=== PATIENT | female | born 1965 | race Caucasian/White ===

== ENCOUNTER 2025-06-18 08:46 | Outpatient (AMB) | payer OTHER, SELFPAY ==
--- NOTE | 2025-06-18 08:57 | MHC.PC.OV ---
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 Required: No Allergies Vwcyxxh-YSH-CrE Reductase Inhibitor Allergy (Severe, Verified 06/18/25 08:58) flu like symptoms Medication List - Last Reconciled 06/18/25 by Selene Morales PA-C dulaglutide (Trulicity) mg subcut empagliflozin (Jardiance) 25 mg PO DAILY escitalopram oxalate 5 mg PO DAILY evolocumab (Repatha SureClick) mg subcut Q2W ezetimibe 10 mg PO DAILY lisinopril 5 mg PO DAILY Tobacco use date assessed: 06/18/25 Dental Screening Dental Screen Date: 06/18/25 Did you have a dental visit in the last 12 months?: Yes Did you have a dental problem in the last 6 months where you did not have access to dental care?: No Was dental information given to patient?: Patient has dentist HPI 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 She is transferring her from [facility]. She has a significant past medical history of a goiter, hypertension, hyperlipidemia, type 2 diabetes with unspecified complications, insomnia, gastritis, low back pain, bilateral hip pain, osteoarthritis and recurrent mild depression. Endo: Was diagnosed with diabetes around 2022. A1c is 5.4. She is currently on Jardiance 25 mg daily and Trulicity 4.5 mg weekly. She says that the Trulicity at this high dose makes her feel nauseous. It does appear to control her blood sugars but she has felt that it does not really help with weight loss. -did not tolerate metformin. Does not Monitor blood sugars. Does not have any testing supplies. Denies any recent hyper or hypoglycemic events CV: Blood pressure today in the office is 114/80. She is currently on lisinopril 5 mg. Cholesterol is managed with Repatha and Zetia 10 mg. Does not tolerate statins, has tried all brands. Had flu like sx with that. GI: On omeprazole for GERD. Psych: Stable with Lexapro 5 mg and trazodone p.r.n. Msk: follows with [facility] and pain management in [facility]. Uses a cane and handicap pass. Has a hard time walking long distances due to her hip pain and back pain. Her right hip is worse than the left. She has had injections in the past and wants to go back to pain management for this. Recently has had an exacerbation of her neck pain. OTC analgesics are not helpful. No radiation down the arms. Feels like she has limited range of motion due to pain. Not interested in physical therapy at this point. Mammo: Overdue Pap: S/p hysterectomy Bone density: Never had, s/p hysterectomy 2005 Colonoscopy: Has been 10 years. Has a history of colon polyps. fam hx: Mother had breast cancer at 71. Sister 40 years old heart attack. 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 1. Little interest or pleasure in doing things: several days 2. Feeling down, depressed, or hopeless: several days 3. Trouble falling or staying asleep, or sleeping too much: several days 4. Feeling tired or having little energy: several days 5. Poor appetite or overeating: not at all 6. Feeling bad about yourself - or that you are a failure or have let yourself or your family down: not at all 7. Trouble concentrating on things, such as reading the newspaper or watching television: not at all 8. Moving or speaking so slowly that other people could have noticed. Or the opposite - being so fidgety or restless that you have been moving around a lot more than usual: not at all 9. Thoughts that you would be better off or of hurting yourself in some way: not at all Total score: 4 Depression Screening Interpretation: Positive Depression Screening Follow-up: Existing condition and Follow-up Visit Requested Depression Screening Done: Yes 93327 - PHQ-9 Billing: Yes Source: Developed by Drs. Lc Hand, Palak Rashid, Reno Oates and colleagues, with an educational jose alfredo from [employer] (Inspect Manager). Thrive Questionnaire Date Thrive assessed: 06/17/25 I am a: Patient What is your living situation today?: I have a steady place to live Within the past 12 months, did the food you bought not last and you didn't have the money to get more?: Never true Within the past 12 months, did you worry whether your food would run out before you got money to buy more?: Never true Do you have trouble paying for medicines?: No Do you have trouble getting transportation to medical appointments?: No Do you have trouble paying your heating and electricity bill?: No Do you have trouble taking care of your child, family member or friend?: No Do you have trouble with day-to-day activities such as bathing, preparing meals, shopping, managing finances, etc.?: No Are you currently unemployed and looking for a job?: No Are you interested in more education?: No Please select the resources that you would like help with: None Currently or been in a relationship where the following occur: No concerns reported THRIVE Score: 0 AUDIT C Alcohol Use Questionnaire (AUDIT-C) 1. How often do you have a drink containing alcohol?: Never 2. How many drinks containing alcohol do you have on a typical day when you are drinking?: 1 or 2 3. How often do you have six or more drinks on one occasion?: Never Total Score: 0 NICOLLE-7 AMB Questionnaire NICOLLE-7 Feeling nervous, anxious, or on edge: 1 = Several days Not being able to stop or control worryin = Several days Worrying too much about different things: 1 = Several days Trouble relaxin = Several days Being so restless that it is hard to sit still: 0 = Not at all Becoming easily annoyed or irritable: 1 = Several days Feeling afraid as if something awful might happen: 0 = Not at all Total NICOLLE-7 score (0-4 normal; 5-9 mild; 10-14 moderate; 15-21 severe): 5 Source: Developed by Drs. Lc Hand, Palak Rashid, Reno Oates and colleagues, with an educational jose alfredo from [employer] (Inspect Manager). NICOLLE-7 Assessment Billing NICOLLE-7 Assessment Tool: NICOLLE-7 Assessment 43763 Physical exam (Primary Care) Depression Screening Interpretation: Positive Depression Screening Follow-up: Existing condition and Follow-up Visit Requested Thrive Assessment: Date of Thrive Assessment Date Thrive assessed 06/17/25 06/17/25 15:22 Currently or been in a relationship where the following occur: No concerns reported Const Orientation/consciousness: patient oriented x3 HENMT Ears: hearing grossly normal bilaterally Neck Thyroid: Thyroid normal Lymphatic: no lymphadenopathy noted Resp Auscultation: clear to auscultation bilaterally Cardio Rate: regular rate Rhythm: regular rhythm Heart sounds: S1 normal heart sound present and S2 normal heart sound present GI Inspection: Yes normal to inspection Palpation (GI): Soft to palpation and Other GI palpation findings present (nontender, no cva tenderness) Auscultation: normoactive bowel sounds Rectal Exam - Female: deferred Skin General skin exam: no rashes or lesions noted Neuro General: patient oriented x3, gait normal and no focal motor deficits Results AMB Hemoglobin A1c AMB Hemoglobin A1c 5.4 % Last Edit by Rehana Alas CMA on 06/18/25 09:24 Coding Level of Care Code New Pt Level 4 (98910) Complex EM visit Add On G2211 Diagnoses Type 2 diabetes mellitus E11.9 Hypertension I10 HLD (hyperlipidemia) E78.5 GERD (gastroesophageal reflux disease) K21.9 Anxiety and depression F41.9; F32.A Colon polyps K63.5 Insomnia G47.00 Bilateral hip pain M25.551; M25.552 Neck pain M54.2 Additional Codes NICOLLE-7 Assessment Billing - NICOLLE-7 Assessment Tool: NICOLLE-7 Assessment 47382 ([id number]) PHQ-9 - 87354 - PHQ-9 Billing: Yes ([id number]) Assessment & Plan Assessment & Plan (1) Type 2 diabetes mellitus: Code(s): E11.9 - Type 2 diabetes mellitus without complications Category: Medical Plan: Jardiance 10 mg ordered We will discontinue the Trulicity and try Mounjaro. Discussed risks and benefits and adverse effects of this medication. She will let me know if she is unable to tolerate this. Testing supplies ordered Reviewed signs and symptoms of hyper and hypoglycemia that would require emergent medical treatment. Labs ordered today Three-month follow up. Sooner if needed (2) Hypertension: Code(s): I10 - Essential (primary) hypertension Category: Medical Plan: WNL. Continue current regimen (3) HLD (hyperlipidemia): Code(s): E78.5 - Hyperlipidemia, unspecified Category: Medical Plan: Has been off of the Repatha for the last month or so. I have reordered this along with refilling the Zetia which she has been compliant with. (4) GERD (gastroesophageal reflux disease): Code(s): K21.9 - Gastro-esophageal reflux disease without esophagitis Category: Medical Plan: Currently well-controlled with omeprazole. Continue current regimen (5) Anxiety and depression: Code(s): F41.9 - Anxiety disorder, unspecified; F32.A - Depression, unspecified Category: Medical Plan: Well-controlled with Lexapro 5 mg. Rarely uses trazodone. (6) Colon polyps: Code(s): K63.5 - Polyp of colon Category: Medical Plan: Referral to GI (7) Insomnia: Code(s): G47.00 - Insomnia, unspecified Category: Medical Plan: As listed above (8) Bilateral hip pain: Code(s): M25.551 - Pain in right hip; M25.552 - Pain in left hip Category: Medical Plan: X-rays ordered Referral back to pain management (9) Neck pain: Code(s): M54.2 - Cervicalgia Category: Medical Plan: X-rays ordered. Referral back to pain management Plan Mammogram and bone density ordered Orders: Orders XR cervical spine 3V Today M54.2 - Cervicalgia MM screening mammo BI Today Z12.31 - Encounter for screening mammogram for malignant neoplasm of breast Complete Blood Count Auto Diff Today E11.9 - Type 2 diabetes mellitus without complications, E78.5 - Hyperlipidemia, unspecified, F32.A - Depression, unspecified, F41.9 - Anxiety disorder, unspecified, I10 - Essential (primary) hypertension, K21.9 - Gastro-esophageal reflux disease without esophagitis TSH reflex Free T4 Today E11.9 - Type 2 diabetes mellitus without complications, E78.5 - Hyperlipidemia, unspecified, F32.A - Depression, unspecified, F41.9 - Anxiety disorder, unspecified, I10 - Essential (primary) hypertension, K21.9 - Gastro-esophageal reflux disease without esophagitis Microalbumin, Random (w Creat) Today E11.9 - Type 2 diabetes mellitus without complications, E78.5 - Hyperlipidemia, unspecified, F32.A - Depression, unspecified, F41.9 - Anxiety disorder, unspecified, I10 - Essential (primary) hypertension, K21.9 - Gastro-esophageal reflux disease without esophagitis XR hips CLIFF min 3V Today M25.551 - Pain in right hip, M25.552 - Pain in left hip AMB Hemoglobin A1c Today E11.9 - Type 2 diabetes mellitus without complications XR DEXA axial skeleton Today N95.1 - Menopausal and female climacteric states Comprehensive [place]. Panel Fast Today E11.9 - Type 2 diabetes mellitus without complications, E78.5 - Hyperlipidemia, unspecified, F32.A - Depression, unspecified, F41.9 - Anxiety disorder, unspecified, I10 - Essential (primary) hypertension, K21.9 - Gastro-esophageal reflux disease without esophagitis Lipid Panel Today E11.9 - Type 2 diabetes mellitus without complications, E78.5 - Hyperlipidemia, unspecified, F32.A - Depression, unspecified, F41.9 - Anxiety disorder, unspecified, I10 - Essential (primary) hypertension, K21.9 - Gastro-esophageal reflux disease without esophagitis UA CC w/rflx Micro + Cult Today E11.9 - Type 2 diabetes mellitus without complications, E78.5 - Hyperlipidemia, unspecified, F32.A - Depression, unspecified, F41.9 - Anxiety disorder, unspecified, I10 - Essential (primary) hypertension, K21.9 - Gastro-esophageal reflux disease without esophagitis, R30.0 - Dysuria Referrals Pain Management Referral G89.29 - Other chronic pain, M25.551 - Pain in right hip, M25.552 - Pain in left hip, M54.2 - Cervicalgia, M54.42 - Lumbago with sciatica, left side Gastroenterology Referral Z12.11 - Encounter for screening for malignant neoplasm of colon Medications: New lancets (FreeStyle Lancets) use daily as directed to check blood glucose 100 ea 3RF E11.65 - Type 2 diabetes mellitus with hyperglycemia blood sugar diagnostic (FreeStyle Lite Strips) Use daily As directed to check blood glucose 100 ea 3RF E11.9 - Type 2 diabetes mellitus without complications empagliflozin (Jardiance) 10 mg PO QAM 90 tabs 2RF tirzepatide (Mounjaro) for 4 weeks 2.5 mg (0.5 mL) subcut QWEEK 2 mL 3RF blood-glucose meter (FreeStyle Lite Meter kit) Use daily As directed to check blood sugars 1 ea 0RF E11.65 - Type 2 diabetes mellitus with hyperglycemia escitalopram oxalate 5 mg PO DAILY 90 tabs 3RF evolocumab (Repatha SureClick) 140 mg subcut Q2W 2 mL 5RF ezetimibe 10 mg PO DAILY 90 tabs 3RF lisinopril 5 mg PO DAILY 90 tabs 3RF Discontinued dulaglutide (Trulicity) Discontinued Reason: Change Referral Type subcut
[2025-06-18 09:06] VITALS: BP 114/80; PULSE 80; RESP 14; TEMP 36.6; O2SAT 97; BMI 44.1
--- OUTSIDE RECORDS SUMMARY | 2025-06-18 09:22 | XMS_ITS | Clinical Summary ---
Author Organization [facility] Address [address] [place] [address] Care Team Providers Care Painting Worker Name Role Phone Doris Lal NP Primary Care Provider [phone] Allergies Active Allergy Reactions Criticality Noted Date Comments Pravastatin 07/04/2013 Other reaction(s): Myalgia and Joint Pain Rosuvastatin High 05/30/2013 Other reaction(s): Myalgia and Joint Pain Multiple trials. Medications Medication Sig Dispensed Refills Start Date End Date Status albuterol 108 (90 Base) MCG/ACT inhaler INHALE 1 PUFF BY MOUTH EVERY 6 HOURS NEEDED FOR 30 DAYS 0 Active cyclobenzaprine (FLEXERIL) 10 MG tablet TAKE 1 TAB ORALLY ONCE AT BEDTIME NEEDED 0 Active Trulicity 3 MG/0.5ML subcutaneous pen-injector every 7 days. 0 05/08/2023 Active Jardiance 10 MG tablet Take 1 tablet (10 mg total) by mouth daily. 0 04/19/2023 Active escitalopram (LEXAPRO) 5 MG tablet Take 1 tablet (5 mg total) by mouth daily. 0 Active ezetimibe (ZETIA) tablet 10 mg Take 1 tablet (10 mg total) by mouth daily. 0 Active lisinopril (PRINIVIL,ZESTRIL) tablet 5 mg Take 1 tablet (5 mg total) by mouth daily. 0 05/16/2023 Active Naproxen Sodium (Aleve) 220 MG CAPS Take by mouth 2 (two) times a day as needed. 0 Active Active Problems Problem Noted Date Diagnosed Date Lumbar spondylosis 02/09/2023 Cervical spondylosis 02/09/2023 Social History Tobacco Use Types Packs/Day Years Used Date Smoking Tobacco: Former Cigarettes 1 20 Q uit: 2006 Smokeless Tobacco: Never Tobacco Cessation:Counseling Given: Not Answered Alcohol Use Standard Drinks/Week Comments Yes 0 (1 standard drink = 0.6 oz pur e alcohol) rare Sex and Gender Information Value Date Recorded Sex Assigned at Female 01/31/2023 8:00 AM EDT Gender Identity Not on file Sexual Orientation Not on file Job Start Date Occupation Industry Not on file Not on file Not on file Last Filed Vital Signs Vital Sign Reading Time Taken Comments Blood Pressure 130/62 08/03/2023 1:18 PM EST Pulse 90 08/03/2023 1:18 PM EST Temperature 36.7 C (98 F) 08/03/2023 1:18 PM EST Respiratory Rate 18 08/03/2023 1:18 PM EST Oxygen Saturation 97% 08/03/2023 1:18 PM EST Inhaled Oxygen Concentration - - Weight 117.9 kg (260 lb) 07/26/2023 1:16 PM EST Height 160 cm (5' 3 ) 07/26/2023 1:16 PM EST Body Mass Index 46.06 07/26/2023 1:16 PM EST Plan of Treatment Health Maintenance Due Date Last Done Comments Hepatitis B Vaccines (1 of 3 - 3-dose series) 1967 Hepatitis C Screening 1967 COVID-19 Vaccine (#1) 1967 Depression Screening 1979 BMI Counseling 1985 Preventative Health Evaluation 1985 Cervical Cancer Screening (P ap Smear) 1988 Colon Cancer Screening (Colonoscopy) 2012 Breast Cancer Screening (Mammogram) 2017 Shingrix-Zoster Vaccine (1 of 2) 2017 DTap / Tdap / Td (2 - Td or Tdap) 03/25/2023 013 Influenza Vaccine (#1) 2025 06/22/2009 Pneumococcal Vaccine Aged Out No long er eligible based on patient's age to complete this topic RSV Ped < 20 months Aged Out No longe r eligible based on patient's age to complete this topic Care Teams Painting Worker Relationship Specialty Start Date End Date Doris Lal NP [address] [address] PCP - General Oncology 07/28/23
--- OUTSIDE RECORDS SUMMARY | 2025-06-18 09:22 | XMS_ITS | Data Portability ---
Author Organization [place] [facility] [place] Address [address] [place] [address] Care Team Providers Care Restaurant Attendant Name Role Phone DORIS BARRETT Primary Care Provider DORIS BARRETT Referring Provider Assessment Encounter Date Assessment Date Assessment LastModified by Organization Details LastModified Time 01/16/2023 01/16/2023 57-year-old female with multiple orthopedic concerns. 1. Her cervical spine. 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 We discussed this diagnosis. She is not a surgical candidate. 2. Chronic low back discomfort with intermittent right anterior groin pain. Approximately 3 weeks of right lateral thigh pain. At this time her low back and right leg/groin symptoms appear multifactorial. She has lumbar spondylosis, she may have an active lumbar radiculopathy, however she also has degenerative changes of her right hip. Regards to her lumbar spine. She has full strength on exam and no red flags. She is not a surgical candidate. We will refer her to the comprehensive spine to do for nonoperative care of her cervical and lumbar spine. We discussed her right hip. We recommended trying to ambulate with a cane on the left to offload the pressure of her right hip. This was demonstrated for her. We will have her follow-up with our hip specialist colleagues for further evaluation and treatment of her right hip. She will follow-up with us on an as-needed basis [email or web address] Not available 01/16/2023 12:27:53 05/16/2023 05/16/2023 58-year-old female with osteoarthritis of the right hip is shown a positive response to intra-articular injection of cortisone. She still has persistent and severe pain at the right low back with radiation into right lower extremity. During today's office encounter I filled out paperwork for handicap parking. I am recommending follow-up with a member of our spine team for further evaluation and assessment of her lumbar spine. [email or web address] Not available 05/16/2023 11:31:04 06/19/2023 06/19/2023 HPI: Fifi is a 57-year-old female with asthma and prediabetes. She has a history of a DVT after a foot surgery. She is not on anticoagulation. She returns today for continued management of her lumbar spine. She was evaluated at our office in January 2022 for her cervical and lumbar spine. 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 She had multilevel lumbar spondylosis. She was referred to the [facility] spine to do for nonoperative care of her spinal symptoms. And referred to Dr. Hess for evaluation of her hip. Since her last visit she had a hip injection with Dr. Hess the offered her temporary relief. She was evaluated at the [facility] spine stool participated in physical therapy. She completed the physical therapy without relief, in fact her lumbar symptoms have worsened. She describes worsening low back pain with bilateral anterior thigh pain that the she describes as hard and painful . She notes variable right lower extremity paresthesias. She Limited with her walking and standing. She is requesting an MRI for further evaluation. Treatments to date include dry needling, massage, family day care worker, 2 cortisone injections by her PCP, which offered her temporary relief, physical therapy at the [facility] [place], a hip injection Plan: We are focusing on her lumbar spine. She has multi level lumbar spondylosis. She has chronic progressive low back pain and bilateral anterior thigh pain and right leg paresthesias. She was treated at the [facility] [place], she completed physical therapy, her back and leg pain are worse. She is requesting an MRI of her lumbar spine for further evaluation. We will place this order for her. She will return after the MRI. Not available 06/19/2023 09:19:40 07/10/2023 07/10/2023 Diabetic with asthma status post DVT after foot surgery was last seen on June 19, 2023. She had progressive back pain and bilateral anterior thigh pain. She completed physical therapy at the [facility] [place]. Her pain is worse. She requested an MRI and returns today to review it. She continues to have meaningful back pain and to much lesser degree leg pain. He is interfering with the quality of her life. She was seen at the [facility] [place] and was disappointed. Physical examination is unremarkable. She has an elevated BMI but no gross neurologic deficit. We discussed options. He is not a surgical candidate. She has a potential benefit from radiofrequency ablation if her medial branch/facet joint blocks give her at least temporary relief. She is interested in pursuing this. We refer her to Dr. Pagan for assessment and possible RFA. She follow-up with us on an as-needed basis. [email or web address] Not available 07/10/2023 16:33:47 Plan of Treatment Reminders Order Date Submit Date Provider Last Modified By Organization Details Last Modified Time Details Appointments None recorded. Lab None recorded. Referral interventi onal pain medicine specialist referral - Please contact patient to schedule appointmen t. Please assess with facet/medi al branch blocks for possible RFA 2022 023 [email or web address] Venus Pagan MD, [address] [place] [address], [facility], [place], [address], 3 07:58:10 spine center referral - Attn: Soraya Dailey - Reason for Referral: Nonoperati ve care of cervical and lumbar spine. 2022 023 [email or web address] [facility] [place], [address], [place], [address], 3 08:12:50 Procedures injection, hip, fluoro guidance (PROC) - right hip OA, corticoste roid inj 2022 023 [email or web address] [facility], [address] [facility], [place], [address], 3 14:14:03 Surgeries None recorded. Imaging MRI, lumbar spine, w/o contrast - progressiv e low back with b/l Leg pain and b/l le numbness 2022 023 CHANDA Not available 3 10:37:02 XR, lumbosacra l spine, 2 or 3 view 2022 023 [email or web address] [facility], [address], [place], [address], 3 12:47:27 XR, cervical spine, 2 or 3 view 2022 023 [email or web address] [facility], [address], [address], [place], [address], 3 12:47:27 XR, hip, unilateral , 2 or 3 view 2022 023 [email or web address] [facility], [address], [address], [place], [address], 3 12:47:27 Medication Orders None recorded. Patient TargetsNo targets recorded. Patient Instructions Encounter Date Encounter Id Patient Instructions Last Modified By Organization Details Last Modified Time 01/16/2023 [id number] Imaging: AP and lateral radiographs of the cervical spine were obtained in the [place] office today. These revealed straightening of cervical lordosis with large flowing anterior osteophytes throughout her entire cervical spine. She appears to be autofused from C2-C6. AP and lateral radiographs lumbar spine were obtained in the [place] office today. These reveal changes with narrowing and osteophyte formation. Facet arthropathy. No evidence of fracture or spondylolisthesis. X-rays of the right hip were obtained in the office today for further evaluation of right groin and lateral thigh pain. This revealed degenerative changes of the right hip without fracture or acute abnormality. [email or web address] Not available 01/16/2023 12:12:03 Reason for Referral Spine Center Referral for Brea mbar spondylosis Attn: Soraya Dailey - Reason for Referral: Nonoperative care of cervical and lumbar spine. Referring Physician: Ashley Reece, Orthopedic Surgery, Encounter Date: 01/16/2023 Interventional Pain Medicine Specialist Referral for Arthritis of facet joint of lumbar spine Please contact patient to schedule appointment. Please assess with facet/medial branch blocks for possible RFA Referring Physician: Karri England, Orthopedic Surgery, Encounter Date: 07/10/2023 Results Created Date Observation Date Name Description Value Unit Range Abnormal Flag Note LastModifiedBy Organization Detail LastModifiedTime 03/09/2003/09/2023 injec tion, hip, fluor o michelle nce (PROC ) No observ ation record ed. [email or web address] [facility] [address] [facility] [address], [place], [address], 03/10/2023 04:40:44 03/09/20 23 03/09/2023 injec tion, hip, fluor o michelle nce (PROC ) No observ ation record ed. [email or web address] [facility] [address] [facility] [address], [place], [address], 03/10/2023 04:40:44 07/05/2006/27/2023 MRI, lumba r spine , w/o contr ast No observ ation record ed. [email or web address] [facility] [address] [place] [address], [address], 07/05/2023 10:55:56 Result Notes None recorded. 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 44102310829 9107 Active 2022 ASHLEY REECE PA-C [address], [place], [address] , [place] [facility] 3 12:27:57 Lumbar spondylos is 010306369 Active 2022 ASHLEY REECE PA-C [address], [place], [address] , [place] [facility] 3 12:27:58 Cervical spondylos is 619460279 Active 2022 Cervical spondylos is Not Available [facility] 5 23:06:58 Osteoarth ritis of right hip joint 12784267521 9107 Active 2022 Carter Hess MD [address], [place], [address] , [place] [facility] 3 14:21:14 Arthritis of facet joint of lumbar spine 62843706219 156148 Active 2022 Karri England MD [address], [place], [address] , [place] [facility] 3 16:32:14 Problem Notes None recorded. Procedures Surgical History Date Name Laterality Status Provider Name and Address Organization Details Recorded Time procedure on foot completed Trena Rachid [place] [facility] 06/19/2023 08:57:47 Gallbladder Surgery completed Trena Rachid [place] [facility] 06/19/2023 08:57:57 [facility] 06/19/2023 08:58:05 Imaging Results None recorded. Procedure Notes None recorded. Medical Equipment None Reported. Allergies Allergen ID Allergen Name Allergen Category Reaction Reaction Severity Criticality Documentation Date Start Date Code Code System Note Provider Name and Address Organization Details Recorded Time 19576 pravastat in medicatio n Not available Not available Not available 06/10/20252012 07326 RxNorm Other react ion(s ): Myalg ia and Joint Pain Not Available [facility] 5 01:21:09 66812 rosuvasta tin medicatio n Not available Not available Not available 06/10/20252012 54563 2 RxNorm Other react ion(s ): Myalg ia and Joint PainM ultip le trial s. Not Available [facility] 5 01:21:09 Medications Name Sig Start Date Stop Date Status Note LastModified by Organization Details LastModified Time cyclobenzapr ine 10 mg tablet TAKE 1 TAB ORALLY ONCE AT BEDTIME NEEDED active Not Available Not Available No t Available prednisone 10 mg tablet PLEASE SEE ATTACHED FOR DETAILED DIRECTIONS active Not Available Not Available N ot Available benzonatate 200 mg capsule TAKE 1 CAPSULE BY MOUTH THREE TIMES A DAY FOR 7 DAYS active Not Available Not Available N ot Available amoxicillin 875 mg tablet TAKE 1 TABLET BY MOUTH EVERY 12 HOURS FOR 10 DAYS active Not Available Not Available Not Available doxycycline monohydrate 100 mg capsule TAKE 1 CAPSULE BY MOUTH EVERY 12 HOURS FOR 10 DAYS active Not Available Not Available Not Available prednisone 50 mg tablet TAKE 1 TAB ORALLY ONCE DAILY FOR 7 DAYS active Not Available Not Available No t Available lisinopril 5 mg tablet Take 1 tablet (5 mg total) by mouth daily. 2022 active Not Available Not Available Not Avai lable albuterol sulfate HFA 90 mcg/actuatio n aerosol inhaler INHALE 1 PUFF BY MOUTH EVERY 6 HOURS NEEDED FOR 30 DAYS active Not Available Not Available No t Available ezetimibe 10 mg tablet Take 1 tablet (10 mg total) by mouth daily. active Not Available Not Available No t Available escitalopram 5 mg tablet Take 1 tablet (5 mg total) by mouth daily. active Not Available Not Available No t Available naproxen sodium 220 mg capsule Take by mouth 2 (two) times a day as needed. active Not Available Not Available No t Available Jardiance 10 mg tablet Take 1 tablet (10 mg total) by mouth daily. 2022 active Not Available Not Available Not Avai lable Trulicity every 7 days. 2022 active Not Available Not Available Not Avai lable Trulicity 3 mg/0.5 mL subcutaneous pen injector active Not Available Not Available Not Available Flowflex COVID-19 Antigen Home Test kit active Not Available Not Available Not Available Vitals Date Recorded Body height Body mass index (BMI) Body weight Provider Name and Address Organization Details Last Updated DateTime 01/16/2023 160.02 cm 46.1 kg/m2 506170.02 norman Doris [facility] 01/16/2023 11:21:52 Date Recorded Body height Provider Name an d Address Organization Details Last Updated DateTime 02/14/2023 160.02 cm Janett Woodard [facility] 02/14/2023 14:07:11 Date Recorded Body height Body mass index (BMI) Body weight Provider Name and Address Organization Details Last Updated DateTime 05/16/2023 160.02 cm 46.1 kg/m2 309913.02 norman Sophie Peña [facility] 05/16/2023 10:58:36 Date Recorded Body height Body mass index (BMI) Body weight Provider Name and Address Organization Details Last Updated DateTime 06/19/2023 160.02 cm 46.1 kg/m2 691210.02 norman Rashid [facility] 06/19/2023 09:06:57 Date Recorded Body height Body mass index (BMI) Body weight Provider Name and Address Organization Details Last Updated DateTime 07/10/2023 160.02 cm 46.1 kg/m2 853110.02 norman Doris [facility] 07/10/2023 16:17:34 Date Recorded Body mass index (BMI) Body weight Body height Provider Name and Address Organization Details Last Updated DateTime 07/26/2023 46.06 kg/m2 328099 g 160 cm Not Available [facility] 06/10/2025 00:53:27 Date Recorded Respiratory rate Heart rate Body temperature Oxygen saturation Oxygen saturation in Arterial blood by Pulse oximetry Systolic And Diastolic Provider Name and Address Organization Details Last Updated DateTime 18 /min 90 /min 98.006 [degF] 97 % 97 % 130/62 mm[Hg] Not Available [facility] 00:53:28 Social History Question Answer Notes LastModified by Organizat ion Details LastModified Time Tobacco Smoking Status Former Smoker Trena baldwin, [facility] 06/19/2023 08:56:32 When Did You Quit Smoking? 16+yearssinc elastcigaret te [email or web address] Information not available 06/19/2023 Sex: Unknown Functional Status Question Answer Note LastModified by Organizat ion Details LastModified Time Do you use any illicit or recreational drugs? No [email or web address] Information not available 06/19/2023 Do you or have you ever used any other forms of tobacco or nicotine? No [email or web address] Information not available 06/19/2023 What is your level of alcohol consumption? None [email or web address] Information not available 06/19/2023 Mental Status None recorded. Family History Relationship Description Onset Age of this Age Resolved Age Notes LastModified by Organization Details LastModified Time Mother Arthritis [id number] Not theron ilable 06/19/2023 08:56:57 Mother Family history of malignant neoplasm [email or web address] Not available 08:57:04 Mother Hyperlipidem ia [email or web address] Not available 08:57:34 Sister Arthritis [id number] Not theron ilable 06/19/2023 08:56:57 Sister Heart disease [email or web address] Not available 08:57:22 Medical History Condition Response Coronary Artery Disease N Gout N Hyperthyroidism N MRSA N Blood Transfusion N Emphysema N Depression N COPD N Hypothyroidism N Pacemaker N Vascular Disease N Gastrointestinal Disease N Anxiety Disorder N Autoimmune disease N Arthritis N Cancer N Stroke N High Cholesterol N Neurologic Disorder N Liver Disease N Organ Transplant N Rheumatoid Arthritis N Arrhythmia N Fibromyalgia N Kidney Disease N Allergies/Hayfever N Adverse Reaction to Anesthesia N Thyroid Problems N Anemia N Brain Injury N Heart Attack (ID) N Osteopenia N Diabetes N Bleeding Disorder Y Seizures/Epilepsy N AIDS/HIV N Congestive Heart Failure (CHF) N Asthma Y Amputation N Reflux/GERD N Sleep Apnea N Hepatitis N Aneurysm N Heart Disease N Pulmonary Embolism N Hypertension N Osteoporosis N Gynecological HistoryNo gynecological history recorded. Obstetrics History GPAL:G 0 P 0 0 0 0 Past Encounters Encounter ID Performer Location Encounter Start Date Encounter Closed Date Diagnosis/Indication Diagnosis SNOMED-CT Code Diagnosis ICD10 Code Diagnosis IMO Codes Diagnosis Note [id number] ASHLEY REECE PA-C [address] [address] 01/16/2023 10:55:10 01/16/2023 12:44:02 Pain in cervical spine 042991568 M54.2 Low back pain 366476200 M54.50 Pain of ri ght hip joint 3187148975 88809 M25.551 Diffuse id iopathic skeletal hyperostosis of cervical spine 8276887319 22641 M48.12 Lumbar spondylosis 39198 0009 M47.896 [id number] MD SHARON Gleason [address] [address] 02/14/2023 14:04:03 02/14/2023 14:20:48 Osteoarthritis of right hip joint 7135428193 43556 M16.11 [id number] [address] 05/16/2023 10:55:30 05/16/2023 11:38:24 Pain of right hip joint 8577518402 50577 M25.551 [id number] [address] 06/19/2023 08:52:37 06/19/2023 09:16:54 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 9845371732 83398 M48.12 Pain in ce rvical spine 955266966 M54.2 Low back pain 123170056 M54.50 Lumbar spondylosis 44724 0009 M47.896 M79.669 Pain of ri ght hip joint 5297346685 87431 M25.551 [id number] Karri England MD JOHAN [address] [address] 07/10/2023 15:53:13 07/10/2023 16:37:13 Low back pain 621099819 M54.50 Arthritis of facet joint of lumbar spine 2329316544 1464131 M46.96 Body mass index 40+ - severely obese 552505131 Z68.42 Health Concerns Section Related Observation LastModified by Organization Detai ls LastModified Time None Recorded Concern Status LastModified by Organization Details LastModified Time None Recorded Advance Directives Directive None Recorded Payers Insurance Date Sequence Insurance Name Policy Number Policy Fowler Covered Member ID Fowler Member ID Guarantor Name 07/09/2023 [id number] Fifi Noriega [id number] Fifi Noriega Notes Date Note Type Note Provider Name and Address Organization Details Recorded Time 01/16/2023 text/html Fifi is a 57-year-old female with asthma and prediabetes. She has a history of a DVT after a foot surgery. She is not on anticoagulation. She presents today with her daughter just for evaluation of her cervical and lumbar spine. She is here to discuss 2 separate concerns. One concern is her cervical spine. She describes chronic neck stiffness and decreased range of motion. 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 She does not have radiculopathy myelopathy or weakness. She is unaware of alleviating or aggravating factors. Her second concern is her lumbar spine. Describes chronic low back discomfort since 2019. More recently she has developed right anterior groin pain, discomfort down her right lateral thigh to her knee and hamstring cramping. Her radiating leg pain has been there approximately 3 weeks without any injury. She denies paresthesias or weakness. Her pain is worse with walking, standing and weightbearing. She feels better avoiding pressure. Pain disturbs sleep. No saddle anesthesia. No bowel or bladder incontinence. No fevers, chills, or unexplained weight loss. Treatments today include dry needling, massage, family day care worker, 2 cortisone injections by her PCP, which offered her temporary relief. ASHLEY REECE PA-C [address], [place], [address], [place] [facility] 01/16/2023 12:29:11 02/14/2023 text/html HPI:Thank you for the pleasure of requesting a consultation on this patient. Patient comes in complaining of right hip pain. This patient is experiencing right hip pain, which is moderate in intensity, and has recently worsened. The pain limits some activities of daily living. Pain and restriction of function are moderate at this time. She has tried dry needling, massage therapy, family day care worker. Spine issues. She was seen by Dr. Bosch's team, and was referred to comprehensive spine [place].Review of systems is negative for other rapidly progressive neurological disorder, chest pain, shortness of breath, fevers, chills, or any signs of active or persistent local or systemic infection. Physical Exam: Patient is well nourished, well-developed, in no acute distress, with appropriate mood and affect. The patient is oriented to time, place, and person. Respirations are even and unlabored. There is no inguinal adenopathy. Examination of the contralateral hip shows normal range of motion, strength, no tenderness, and intact skin. The affected limb is well-perfused, shows a grossly normal motor and sensory examination. Examination of the right hip shows no skin lesions. Hip motion is reduced. FADIR is positive and ABRAHAN is positive. Stinchfield test is mildly positive. Leg lengths are approximately equal . Both hips are stable and muscle strength is normal. Pedal pulses are palpable. Radiographs of the right hip from January 16, 2023 demonstrate degenerative joint disease with joint space narrowing and subchondral sclerosis. Assessment/Plan: The patient has right hip arthritis. An extensive discussion was conducted on the natural history of the disease and the variety of surgical and non-surgical options available to the patient including non-steroidal anti-inflammatory medications, physical therapy, maintenance of ideal body weight, and reduction of activity. I think a right hip injection would be helpful both for diagnostic and therapeutic purposes. I am referring her for IR guided right corticosteroid injection. She will follow-up in 4 months with reevaluation at that time. Carter Hess MD [address], [place], [address], [place] [facility] 02/14/2023 14:22:25 05/16/2023 text/html 58-year-old female presents for recheck of right hip pain. She reports that she underwent a cortisone injection to the right hip. She states that it helped to alleviate the pain that she was experiencing in the groin. She still has persistent pain at the right low back with radiation in the buttock and down the leg. She engages me in conversation about the role for injection to the back and potential need for an MRI of her lumbar spine. Notably there is no report of any new incontinence of bladder or bowel nor any saddle paresthesia. GAURAV OLIVIER PA-C [address], [place], [address], [place] [facility] 05/16/2023 11:31:23 06/19/2023 text/html Prior Visit 01/16/23 Fifi is a 57-year-old female with asthma and prediabetes. She has a history of a DVT after a foot surgery. She is not on anticoagulation. She presents today with her daughter just for evaluation of her cervical and lumbar spine. She is here to discuss 2 separate concerns. One concern is her cervical spine. She describes chronic neck stiffness and decreased range of motion. 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 She does not have radiculopathy myelopathy or weakness. She is unaware of alleviating or aggravating factors. Her second concern is her lumbar spine. Describes chronic low back discomfort since 2019. More recently she has developed right anterior groin pain, discomfort down her right lateral thigh to her knee and hamstring cramping. Her radiating leg pain has been there approximately 3 weeks without any injury. She denies paresthesias or weakness. Her pain is worse with walking, standing and weightbearing. She feels better avoiding pressure. Pain disturbs sleep. No saddle anesthesia. No bowel or bladder incontinence. No fevers, chills, or unexplained weight loss. Treatments today include dry needling, massage, family day care worker, 2 cortisone injections by her PCP, which offered her temporary relief. Plan 57-year-old female with multiple orthopedic concerns. 1. Her cervical spine. 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 We discussed this diagnosis. She is not a surgical candidate. 2. Chronic low back discomfort with intermittent right anterior groin pain. Approximately 3 weeks of right lateral thigh pain. At this time her low back and right leg/groin symptoms appear multifactorial. She has lumbar spondylosis, she may have an active lumbar radiculopathy, however she also has degenerative changes of her right hip. Regards to her lumbar spine. She has full strength on exam and no red flags. She is not a surgical candidate. We will refer her to the comprehensive spine to do for nonoperative care of her cervical and lumbar spine. We discussed her right hip. We recommended trying to ambulate with a cane on the left to offload the pressure of her right hip. This was demonstrated for her. We will have her follow-up with our hip specialist colleagues for further evaluation and treatment of her right hip. She will follow-up with us on an as-needed basis ASHLEY REECE PA-C [address], [place], [address], [place] [facility], P 06/19/2023 09:20:46 OBGyn Episode No OBEpisode recorded.
--- OUTSIDE RECORDS SUMMARY | 2025-06-18 09:22 | XMS_ITS | Clinical Summary ---
Author Organization [facility] it Address [address] [place] [address] Care Team Providers Care Sand Conditioner Name Role Phone Doris Lal BELKIS Primary Care Provider [phone] Surgical History Surgery Date Site/Laterality Comments CHOLECYSTECTOMY PROCEDURE:CHOLECYSTECTOMY HYSTERECTOMY PROCEDURE:HYSTERECTOMY FOOT SURGERY PROCEDURE:FOOT SURGERY COLONOSCOPY PROCEDURE:COLONOSCOPY LUMBAR EPIDURAL INJECTION 08/03/2023 Bilateral PROCEDURE:LUMBAR EPIDURAL INJECTION;COMMENT:Procedure: INJECTION ANESTHETIC AGENT LUMBAR; Surgeon: Venus Pagan MD; Location: [facility]; Service: Rehab Medicine; Laterality: Bilateral; Medical History Medical History Date Comments Hypertension DX:Hypertension Hyperlipidemia DX:Hyperlipidemi a Diabetes mellitus, type II ( CMS/HCC V24, CMS/HCC V28) DX:Diabetes mellitus, type I I ([facility]) Osteoarthritis DX:Osteoarthriti s Asthma DX:Asthma Anxiety DX:Anxiety Social History Tobacco Use Types Packs/Day Years Used Date Smoking Tobacco: Former Cigarettes Q uit: 09/18/2005 Smokeless Tobacco: Never Alcohol Use Standard Drinks/Week Comments Yes 0 (1 standard drink = 0.6 oz pur e alcohol) Comments Unknown Sex and Gender Information Value Date Recorded Sex Assigned at Not on file Legal Sex Female 11:09 AM EST Gender Identity Not on file Sexual Orientation Not on file Obstetrics History Last Filed Vital Signs Vital Sign Reading Time Taken Comments Blood Pressure 153/93 02/09/2023 11:42 AM EDT Sitting Right arm Pulse 93 02/09/2023 11:42 AM EDT Temperature - - Respiratory Rate - - Oxygen Saturation - - Inhaled Oxygen Concentration - - Weight 118 kg (260 lb) 07/13/2023 10:55 AM EDT Height 160 cm (5' 3 ) 07/13/2023 10:55 AM EDT Body Mass Index 46.06 07/13/2023 10:55 AM EDT Plan of Treatment Health Maintenance Due Date Last Done Comments Colorectal Cancer Screening: Colonoscopy 1967 Hepatitis B Vaccines (1 of 3 - 19+ 3-dose series) 1986 Pneumococcal Vaccine: 50+ Years (1 of 2 - PCV) 1986 Cervical Cancer Screening: Pap Smear 1988 Zoster Vaccines (1 of 2) 2017 Cholesterol Screening (Lipid Panel) 08/16/2022 HIV Screening 08/16/2022 Hepatitis C Screening 08/16/2022 Social Influencers of Health Screening 08/16/2022 Breast Cancer Screening 08/20/2022 08/20/20 20, 08/13/2019, 08/02/2018, Additional history exists DTaP,Tdap,and Td Vaccines (2 - Td or Tdap) 03/25/2023 03/25/2013 Depression Screening 09/18/2024 COVID-19 Vaccine ( - season) 2025 Influenza Vaccine (#1) 2025 06/22/2009 RSV Immunization Adult Patients (1 - 1-dose 75+ series) 2042 HIB Vaccines Aged Out No longer eligi ble based on patient's age to complete this topic HPV Vaccines Aged Out No longer eligi ble based on patient's age to complete this topic Hepatitis A Vaccines Aged Out No long er eligible based on patient's age to complete this topic IPV Vaccines Aged Out No longer eligi ble based on patient's age to complete this topic MMR Vaccines Aged Out No longer eligi ble based on patient's age to complete this topic Meningococcal ACWY Vaccine Aged Out N o longer eligible based on patient's age to complete this topic Meningococcal B Vaccine Aged Out No l onger eligible based on patient's age to complete this topic RSV Immunization Patients Under 20 months Aged Out No longer eligible based on patient's age to complete this topic Varicella Vaccines Aged Out No longer eligible based on patient's age to complete this topic Procedures Procedure Name Priority Date/Time Associated Diagnosis Comments SCR MAMMO BI INCL CAD Routine 08/20/2020 5:47 PM EST Encounter for screening mammogram for malignant neoplasm of breast from Last 3 Months or Most Recently Relevant to Health Maintenance Results * SCR MAMMO BI INCL CAD (08/20/2020 5:47 PM EST) Anatomical Region Laterality Modality Radiographic Alexandra ging 08/13/2019 5:42 PM EST Narrative 08/21/2020 9:16 AM EST This is a summary report. The complete report is available in the patient's medical record. If you cannot access the medical record, please contact the sending organization for a detailed fax or copy. Full field digital screening mammography, reviewed with CAD and compared to previous mammograms dating back to 07/09/2014 with most recent of 08/13/2019. The breasts are composed of fatty and fibroglandular tissue. No suspicious mass, architectural distortion or suspicious calcifications are identified. IMPRESSION: : No mammographic evidence of malignancy. BIRADS 1-Negative; N. 5 year breast cancer risk assessment 2.1 % Lifetime breast cancer risk assessment 15.7 % Breast cancer risk category Moderate (15% - 20%) Procedure Note Kaleigh Mckee MD - 09/06/2022 This is a summary report. The complete report is available in thepatient's medical record. If you cannot access the medical record, pleasecontact the sending organization for a detailed fax or copy. Full field digital screening mammography, reviewed with CAD and comparedto previous mammograms dating back to 07/09/2014 with most recent of08/13/2019. The breasts are composed of fatty and fibroglandular tissue.No suspicious mass, architectural distortion or suspicious calcificationsare identified. IMPRESSION: : No mammographic evidence of malignancy. BIRADS 1-Negative; N. 5 year breast cancer risk assessment 2.1 % Lifetime breast cancer risk assessment 15.7 % Breast cancer risk category Moderate (15% - 20%) us Radiology Results Historical IMG XR PROCEDURE S Final Result from Last 3 Months or Most Recently Relevant to Health Maintenance Care Teams Sand Conditioner Relationship Specialty Start Date End Date Doris Lal NP [address] [place] [address] PCP - General 07/28/23
--- OUTSIDE RECORDS SUMMARY | 2025-06-18 09:22 | XMS_ITS ---
Author Name [facility] Organization Unknown History of Medication Use Medication Directions Dispensed Refills Start Date End Date Stat us Trulicity 3 MG/0.5ML subcutaneous pen-injector 05/08/2023 active albuterol 108 (90 Base) MCG/ACT inhaler Inhale 2 puffs into the lungs. 03/19/2015 active albuterol sulfate HFA 90 mcg/actuation aerosol inhaler INHALE 1 PUFF BY MOUTH EVERY 6 HOURS NEEDED FOR 30 DAYS active amoxicillin 875 mg tablet TAKE 1 TABLET BY MOUTH EVERY 12 HOURS FOR 10 DAYS active ezetimibe 10 mg tablet active Flowflex COVID-19 Antigen Home Test kit act sherman Jardiance 10 mg tablet active escitalopram (LEXAPRO) 5 MG tablet act sherman ezetimibe (ZETIA) tablet 10 mg active Problems Problem Status Onset Date Problem Type Date of Resolution Source Low back pain, unspecified active EncounterDiagnosisAct [facility] MG Lumbar spondylosis active 2023-02-09 ProblemAct [facility] Cervical spondylosis active 2023-02-09 ProblemAct [facility] Pain in cervical spine active 2023-01-16 ProblemAct [facility] Lumbar spondylosis active 2023-01-16 ProblemAct [facility] Low back pain active 2023-01-16 ProblemAct [facility] 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 active 2023-01-16 ProblemAct [facility] Pain in right hip joint active 2023-01-16 ProblemAct [facility] Arthritis of facet joint of lumbar spine active 2023-07-10 ProblemAct [facility] Osteoarthritis of right hip joint active 2023-02-14 ProblemAct [facility] Encounters Encounter Type Encounter Reason Primary Diagnosis Location Date Ambulatory Spondylosis without myelopathy or radiculopathy, lumbar region Spondylosis without myelopathy or radiculopathy, lumbar region [facility] 08/03/2023 Ambulatory Spondylosis without myelopathy or radiculopathy, lumbar region Spondylosis without myelopathy or radiculopathy, lumbar region [facility] 08/03/2023 Ambulatory [facility] 07/10/2023 Ambulatory [facility] 07/06/2023 Ambulatory [facility] 06/19/2023 Ambulatory [facility] 06/19/2023 Ambulatory Dorsalgia, unspecified [facility] 04/10/2023 Ambulatory Dorsalgia, unspecified [facility] 04/03/2023 Ambulatory Dorsalgia, unspecified [facility] 03/27/2023 Ambulatory Dorsalgia, unspecified [facility] 03/20/2023 Ambulatory Dorsalgia, unspecified [facility] 03/13/2023 Ambulatory [facility] 03/04/2023 Ambulatory [facility] 02/14/2023 Ambulatory [facility] 01/31/2023 Ambulatory [facility] 01/16/2023 Ambulatory [facility] 01/16/2023 Ambulatory [facility] 01/09/2023 Care Team Organization Name Specialty Phone Email Start Date End Da te [facility] Doris Lal Primary Care 08/03/2023 [facility] 03/05/2023 01/31/2025 [facility] 02/27/202302/16
== END 2025-06-18 09:42 | disposition home or self-care (01) ==
LOC: HO.HMCFM 08:47
PROVIDERS: PCP Physician Assistant; Visit Provider Physician Assistant
DX: E11.9 Type 2 diabetes mellitus without complications (principal); I10 Essential (primary) hypertension; E78.5 Hyperlipidemia, unspecified; K21.9 Gastro-esophageal reflux disease without esophagitis; F41.9 Anxiety disorder, unspecified; F32.A Depression, unspecified; K63.5 Polyp of colon; G47.00 Insomnia, unspecified; M25.551 Pain in right hip; M25.552 Pain in left hip; M54.2 Cervicalgia

== ENCOUNTER 2025-06-18 08:46 | Outpatient (REF) | payer OTHER, SELFPAY ==
[2025-06-18 11:22] LABS: MANUAL DIFF FLAG NO
[2025-06-18 11:27] LABS: Appearance Urine Clear; Glucose Urine UA >=1000 mg/dL (Negative); PH 5.0 (5.0-9.0); Specific Gravity - Urine 1.025 (1.005-1.025); UMIC TRIGGER UACC YES
[2025-06-18 11:28] LABS: Hematocrit 43.4 % (37.0-47.0); Hemoglobin 14.9 g/dl (12.0-16.0); Imm Gran Abs Auto 0.03 X10*3/uL (0.00-0.03); Imm Gran Pct Auto 0.4 % (0.0-0.4); Lymphocytes Absolute Auto 1.5 X10*3/uL (1.2-4.9); Mean Corpuscular HGB Conc 34.3 g/dl (31.0-35.0); Mean Corpuscular Hemoglobin 30.3 pg (27.0-33.0); Mean Corpuscular Volume 88.2 fL (80.0-98.0); NRBC Abs Auto 0.000 X10*3/uL (0.0-0.012); NRBC Pct Auto 0.0 /100WBC (0.0-0.2); Platelet Count 247 X10*3/uL (160-400); Red Blood Count 4.92 X10*6/uL (4.20-5.50); White Blood Count 7.0 X10*3/uL (4.8-10.8)
[2025-06-18 11:32] LABS: UACC Culture Trigger YES
[2025-06-18 11:47] LABS: Alanine Aminotransferase 15 U/L (0-31); Albumin Level 4.1 g/dL (3.5-5.0); Alkaline Phosphatase 67 U/L (39-117); Anion Gap 11 (12-20); Aspartate Amino Transferase 19 U/L (5-31); Blood Urea Nitrogen 13 mg/dL (9-16); Calcium 8.9 mg/dL (8.4-10.2); Carbon Dioxide 27 mmol/L (22-29); Chloride 109 mmol/L (96-108); Cholesterol 230 mg/dL (<200); Estimated Glomerular Filt Rate > 60; HDL Cholesterol 51 mg/dL (>40); Potassium 3.7 mmol/L (3.3-5.1); Sodium 143 mmol/L (135-145); Total Protein 6.6 g/dL (6.5-8.0); Triglycerides 156 mg/dL (<150)
== END 2025-06-18 08:47 | disposition home or self-care (01) ==
LOC: HO.WFDLDS 08:46
PROVIDERS: PCP Physician Assistant; Visit Provider Physician Assistant
DX: F41.9 Anxiety disorder, unspecified (principal); F32.A Depression, unspecified; I10 Essential (primary) hypertension; E78.5 Hyperlipidemia, unspecified; E11.9 Type 2 diabetes mellitus without complications; K21.9 Gastro-esophageal reflux disease without esophagitis; K63.5 Polyp of colon; G47.00 Insomnia, unspecified; M25.551 Pain in right hip; M25.552 Pain in left hip; M54.2 Cervicalgia; Z79.85 Long-term (current) use of injectable non-insulin antidiabetic drugs; Z79.84 Long term (current) use of oral hypoglycemic drugs; Z79.899 Other long term (current) drug therapy
CPT/HCPCS: 36415; 80053; 80061; 81001; 81003; 82043; 82570; 83036; 84443; 85025; 87086; 96127

== ENCOUNTER 2025-08-27 12:52 | Outpatient (AMB) | payer OTHER, SELFPAY ==
--- NOTE | 2025-08-27 12:56 | MHC.PC.OV ---
Vital Signs 08/27/25 12:59 Height 5 ft 2 in Weight 239 lb 4 oz BMI 43.8 BP 102/64 Blood Pressure Location Rt brachial Position Sitting Respiration 14 Pulse 88 Pulse Source Pulse Oximeter Temp 97.8 F Temp Source Oral Pulse Oximetry (%) 97 Oxygen Delivery Method Room Air Intake Visit Reasons: ADA form /letter /Follow Up Pain Intake Note: Follow up. Needs a letter stating its too painful to walk so many steps to get aroudn at job. Infection Control Nurse Required: No Allergies Ccuhqdb-CYO-PaV Reductase Inhibitor Allergy (Severe, Verified 08/27/25 13:01) flu like symptoms Medication List - Last Reconciled 08/27/25 by Selene Morales PA-C blood sugar diagnostic (FreeStyle Lite Strips) Use daily As directed to check blood glucose blood-glucose meter (FreeStyle Lite Meter kit) Use daily As directed to check blood sugars empagliflozin (Jardiance) 10 mg PO QAM escitalopram oxalate 5 mg PO DAILY evolocumab (Repatha SureClick) 140 mg subcut Q2W ezetimibe 10 mg PO DAILY lancets (FreeStyle Lancets) use daily as directed to check blood glucose lisinopril 5 mg PO DAILY tirzepatide (Mounjaro) 5 mg (0.5 mL) subcut QWEEK Tobacco use date assessed: 08/27/25 Dental Screening Dental Screen Date: 06/18/25 HPI ADA form /letter /Follow Up Pain HPI Details Patient is a 60-year-old female who presents today for a follow up. She has a significant past medical history of a goiter, hypertension, hyperlipidemia, type 2 diabetes with unspecified complications, insomnia, gastritis, low back pain, bilateral hip pain, osteoarthritis and recurrent mild depression. Endo: Was diagnosed with diabetes around 2022. A1c is 5.4. She is currently on Jardiance 25 mg daily and mounjaro 2.5 mg weekly. She says that the Trulicity at this high dose makes her feel nauseous. -did not tolerate metformin. Does not Monitor blood sugars. Does not have any testing supplies. Denies any recent hyper or hypoglycemic events CV: Blood pressure today in the office is 102/64. She is currently on lisinopril 5 mg. Cholesterol is managed with Repatha and Zetia 10 mg. Does not tolerate statins, has tried all brands. Had flu like sx with that. GI: On omeprazole for GERD. Scheduled 09/24/25. Psych: Stable with Lexapro 5 mg and trazodone p.r.n. Msk: follows with [facility] and pain management in [facility]. Uses a cane and handicap pass. Has a hard time walking long distances due to her hip pain and back pain. Her right hip is worse than the left. She has had injections in the past and wants to go back to pain management for this. Recently has had an exacerbation of her neck pain. OTC analgesics are not helpful. No radiation down the arms. Feels like she has limited range of motion due to pain. She is currently trying PT. Mammo: Overdue- booked next week Pap: S/p hysterectomy Bone density: Never had, s/p hysterectomy 2006- booked next week Colonoscopy: Has been 10 years. Has a history of colon polyps. fam hx: Mother had breast cancer at 71. Sister 40 years old heart attack. 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 [employer] Current occupational exposures/hazards: No Cognitive needs: No Hearing needs: Yes (trouble hearing in room with a lot of noise) Vision needs: Yes (glasses distance) Questionnaire Thrive Questionnaire Date Thrive assessed: 06/17/25 I am a: Patient What is your living situation today?: I have a steady place to live Within the past 12 months, did the food you bought not last and you didn't have the money to get more?: Never true Within the past 12 months, did you worry whether your food would run out before you got money to buy more?: Never true Do you have trouble paying for medicines?: No Do you have trouble getting transportation to medical appointments?: No Do you have trouble paying your heating and electricity bill?: No Do you have trouble taking care of your child, family member or friend?: No Do you have trouble with day-to-day activities such as bathing, preparing meals, shopping, managing finances, etc.?: No Are you currently unemployed and looking for a job?: No Are you interested in more education?: No Please select the resources that you would like help with: None Currently or been in a relationship where the following occur: No concerns reported THRIVE Score: 0 Physical exam (Primary Care) Vital Signs: Last Vital Signs Temp 97.8 F 08/27/25 12:59 Pulse 88 08/27/25 12:59 Resp 14 08/27/25 12:59 BP 102/64 08/27/25 12:59 Pulse Ox 97 08/27/25 12:59 Oxygen Delivery Method Room Air 08/27/25 12:59 BMI result Body Mass Index 43.8 Tobacco/Smoking Status: Tobacco use Status Tobacco use date assessed 08/27/25 08/27/25 13:06 Patient Tobacco Use Status Former Tobacco user 08/27/25 13:06 e-Cigarette/Vaping Use Never Used 08/27/25 13:06 Thrive Assessment: Date of Thrive Assessment Date Thrive assessed 06/17/25 08/27/25 12:58 Currently or been in a relationship where the following occur: No concerns reported Const Orientation/consciousness: patient oriented x3 HENMT Ears: hearing grossly normal bilaterally Neck Thyroid: Thyroid normal Lymphatic: no lymphadenopathy noted Resp Auscultation: clear to auscultation bilaterally Cardio Rate: regular rate Rhythm: regular rhythm Heart sounds: S1 normal heart sound present and S2 normal heart sound present Skin General skin exam: no rashes or lesions noted Neuro Other: walks with a slow, wide gait General: patient oriented x3 and no focal motor deficits Results Reviewed Results Reviewed: Laboratory Tests 06/18/25 06/18/25 09:23 09:59 WBC 7.0 RBC 4.92 Hgb 14.9 Hct 43.4 Plt Count 247 Sodium 143 Potassium 3.7 Chloride 109 H Carbon Dioxide 27 Anion Gap 11 L BUN 13 Creatinine 0.81 Estimated GFR > 60 Hgb A1c (Clinic) 5.4 Calcium 8.9 Total Bilirubin 0.5 AST 19 ALT 15 Alkaline Phosphatase 67 Total Protein 6.6 Albumin 4.1 Triglycerides 156 H Cholesterol 230 H LDL Cholesterol, Calc 148 H HDL Cholesterol 51 TSH 3.48 Coding Level of Care Code Est Pt Level 4 (01565) Add On Problem Visit Only Diagnoses Type 2 diabetes mellitus E11.9 HLD (hyperlipidemia) E78.5 Hypertension I10 Osteoarthritis M19.90 Bilateral hip pain M25.551; M25.552 Assessment & Plan Assessment & Plan (1) Type 2 diabetes mellitus: Code(s): E11.9 - Type 2 diabetes mellitus without complications Category: Medical Plan: increase mounjaro to 5 mg weekly continue jardaince f/u in 3 months with labs prior sooner prn (2) HLD (hyperlipidemia): Code(s): E78.5 - Hyperlipidemia, unspecified Category: Medical Plan: continue current plan (3) Hypertension: Code(s): I10 - Essential (primary) hypertension Category: Medical Plan: wn cotinue current plan (4) Osteoarthritis: Code(s): M19.90 - Unspecified osteoarthritis, unspecified site Category: Medical Plan: letter written for work accommodations (5) Bilateral hip pain: Code(s): M25.551 - Pain in right hip; M25.552 - Pain in left hip Category: Medical Plan: following with ortho and pt Orders: Orders Comprehensive [place]. Panel Fast 08/27/25 E11.9 - Type 2 diabetes mellitus without complications, E78.5 - Hyperlipidemia, unspecified, I10 - Essential (primary) hypertension Hemoglobin A1c 08/27/25 E11.9 - Type 2 diabetes mellitus without complications, E78.5 - Hyperlipidemia, unspecified, I10 - Essential (primary) hypertension, R73.01 - Impaired fasting glucose Complete Blood Count Auto Diff 08/27/25 E11.9 - Type 2 diabetes mellitus without complications, E78.5 - Hyperlipidemia, unspecified, I10 - Essential (primary) hypertension TSH reflex Free T4 08/27/25 E11.9 - Type 2 diabetes mellitus without complications, E78.5 - Hyperlipidemia, unspecified, I10 - Essential (primary) hypertension Medications: New tirzepatide (Mounjaro) 5 mg (0.5 mL) subcut QWEEK 2 mL 5RF Discontinued tirzepatide (Mounjaro) for 4 weeks Discontinued Reason: Doctor's Order 2.5 mg (0.5 mL) subcut QWEEK 2 mL 3RF
[2025-08-27 12:59] VITALS: BP 102/64; PULSE 88; RESP 14; TEMP 36.6; O2SAT 97; BMI 43.8
--- OUTSIDE RECORDS SUMMARY | 2025-08-27 19:50 | XMS_ITS | Clinical Summary ---
Author Organization [facility] Prior to 02/15/25 Address [address] [place] [address] Care Team Providers Care Dental Equipment Mechanic Name Role Phone Doris Lal NP Primary Care Provider [phone] Allergies Active Allergy Reactions Criticality Noted Date [...] age to complete this topic Care Teams Dental Equipment Mechanic Relationship Specialty Start Date End Date Doris Lal NP [address] [id number] [place] [id number] PCP - General Oncology 07/28/23
--- OUTSIDE RECORDS SUMMARY | 2025-08-27 19:50 | XMS_ITS | Clinical Summary ---
Author Organization [facility] it Address [address] [place] [address] Care Team Providers Care Manager Publishing Name Role Phone Doris Lal BELKIS Primary Care Provider [phone] Surgical History Surgery Date Site/Laterality Comments CHOLECYSTECTOMY PROCEDURE:CHOLECYSTECTOMY HYSTERECTOMY PROCEDURE:HYSTERECTOMY FOOT SURGERY PROCEDURE:FOOT SURGERY COLONOSCOPY PROCEDURE:COLONOSCOPY LUMBAR EPIDURAL INJECTION 08/03/2023 Bilateral PROCEDURE:LUMBAR EPIDURAL INJECTION;COMMENT:Procedure: INJECTION ANESTHETIC AGENT LUMBAR; Surgeon: Venus Pagan MD; Location: [facility]; Service: Rehab Medicine; Laterality: Bilateral; Medical History Medical History Date Comments Hypertension DX:Hypertension Hyperlipidemia DX:Hyperlipidemi a Diabetes mellitus, type II ( CMS/HCC V24, CMS/HCC V28) DX:Diabetes mellitus, type I I ([facility]) Osteoarthritis DX:Osteoarthriti s Asthma DX:Asthma Anxiety DX:Anxiety Social History Tobacco Use Types Packs/Day Years Used Date Smoking Tobacco: Former Cigarettes 1 Q uit: 09/18/2005 Smokeless Tobacco: Never Alcohol Use Standard Drinks/Week Comments Yes 0 (1 standard drink = 0.6 oz pur e alcohol) Comments Unknown Sex and Gender Information Value Date Recorded Sex Assigned at Not on file Legal Sex Female 11:09 AM EST Gender Identity Not on file Sexual Orientation Not on file Last Filed Vital Signs [...] 1986 Cervical Cancer Screening: Pap Smear 1988 RSV Immunization Adult Patients (1 - Risk 50-74 years 1-dose series) 2017 Zoster Vaccines (1 of 2) 2017 Cholesterol Screening (Lipid Panel) 08/16/2022 HIV Screening 08/16/2022 Hepatitis C Screening 08/16/2022 Social Influencers of Health Screening 08/16/2022 Breast Cancer Screening 08/20/2022 08/20/20 20, 08/13/2019, 08/02/2018, Additional history exists DTaP,Tdap,and Td Vaccines (2 - Td or Tdap) 03/25/2023 03/25/2013 Depression Screening 09/18/2024 COVID-19 Vaccine (1 - season) 2025 Influenza Vaccine (#1) 2025 06/22/2009 HIB Vaccines Aged Out No longer eligi [...] Recently Relevant to Health Maintenance Care Teams Manager Publishing Relationship Specialty Start Date End Date Doris Lla NP [address] [place] [address] PCP - General 07/28/23
== END 2025-08-27 13:29 | disposition home or self-care (01) ==
LOC: HO.HMCFM 12:53
PROVIDERS: PCP Physician Assistant; Visit Provider Physician Assistant
DX: E11.9 Type 2 diabetes mellitus without complications (principal); E78.5 Hyperlipidemia, unspecified; I10 Essential (primary) hypertension; M19.90 Unspecified osteoarthritis, unspecified site; M25.551 Pain in right hip; M25.552 Pain in left hip

== ENCOUNTER 2025-09-05 14:05 | Outpatient (REF) | payer OTHER, SELFPAY ==
--- NOTE | ~2025-09-05 | MM_ITS ---
EXAMINATION: DXA BONE DENSITY AXIAL HISTORY: N95.1 - Menopausal and female climacteric states TECHNIQUE: [employer] Dual energy absorptiometry (DEXA) of the lumbar spine, total left hip, and femoral neck was performed. COMPARISON: There are no prior studies for comparison. FINDINGS: The bone mineral density of the lumbar spine is 1.898 g/cm2, corresponding to a T-score of 6.0, and a Z-score of 5.9. This is indicative of normal bone mineral density. The bone mineral density of the left total hip is 1.313 g/cm2, corresponding to a T-score of 2.4, and a Z-score of 2.4. This is indicative of normal bone mineral density. The bone mineral density of the left femoral neck is 1.197 g/cm2, corresponding to a T-score of 1.1, and a Z-score of 1.5. This is indicative of normal bone mineral density. FRACTURE RISK: The FRAX index suggests a risk of major osteoporotic fracture of 4.3%, and of hip fracture 0.0%. MM/XR DEXA axial skeleton IMPRESSION: Based on bone mineral density, and according to World Health Organization (WHO) criteria, the diagnosis is consistent with normal bone mineral density. Statistically, 68% of repeat scans fall within 1 SD (+/- 0.010 g/cm2 for AP spine L1-L4) and 1 SD (+/- 0.012 g/cm2 for femur total) FRAX is a trademark of the [employer]'s [place] for Metabolic Bone Disease, a World Health Organization (WHO) Collaborating Center. Electronically signed by: Lc Enriquez MD 09/05/2025 02:46 PM [facility]
--- NOTE | ~2025-09-05 | MM_ITS ---
EXAMINATION: MM SCREENING DIGITAL BREAST TOMOSYNTHESIS, BILATERAL CLINICAL INFORMATION: Screening. Asymptomatic. COMPARISON: Mammography: Comparison is made with available priors TECHNIQUE: Digital breast mammography with tomosynthesis is performed in both the craniocaudal and mediolateral oblique views along with computer-aided detection (CAD). FINDINGS: There are scattered areas of fibroglandular density. There are no significant masses, abnormal calcifications, or other abnormalities. MM/MM tomosynthesis screening BI IMPRESSION: No mammographic evidence of malignancy. ASSESSMENT: BI-RADS Category 1: Negative RECOMMENDATION: Routine annual mammography screening. 1 year F/U This examination should not preclude the clinical evaluation of a suspicious palpable abnormality. This patient's information was entered into a reminder system with a target due date for their next mammogram. Electronically signed by: Christine Eller DO 09/09/2025 04:30 PM [facility]
--- OUTSIDE RECORDS SUMMARY | 2025-09-05 15:39 | XMS_ITS | Data Portability ---
Author Organization [place] [facility] [place] Address [address] [place] [address] Care Team Providers Care Exercise Equipment Specialist Name Role Phone TIMO BARRETT Primary Care Provider [phone] TIMO BARRETT Referring Provider [phone] Assessment Encounter Date Assessment Date Assessment LastModified [...] follow-up with us on an as-needed basis [email or web address] Not available 01/16/2023 12:27:53 05/16/2023 05/16/2023 58-year-old [...] lumbar spondylosis. She was referred to the [facility] to do for nonoperative care of her spinal symptoms. And referred to Dr. Hses for evaluation of her hip. Since her last visit she had a hip injection with Dr. Hess the offered her temporary relief. She was evaluated at the [facility] stool participated in physical therapy. 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 She has multi level lumbar spondylosis. She has chronic progressive low back pain and bilateral anterior thigh pain and right leg paresthesias. She was treated at the [facility], she completed physical therapy, her back and leg pain are worse. She is requesting an MRI of her lumbar spine for further evaluation. We will place this order for her. She will return after the MRI. [email or web address] Not available 06/19/2023 09:19:40 07/10/2023 07/10/2023 Diabetic with asthma status post DVT after foot surgery was last seen on June 19, 2023. She had progressive back pain and bilateral anterior thigh pain. She completed physical therapy at the [facility]. Her pain is worse. She requested an MRI and returns today to review it. She continues to have meaningful back pain and to much lesser degree leg pain. He is interfering with the quality of her life. She was seen at the [facility] and was disappointed. Physical examination is unremarkable. [...] RFA 2022 023 [email or web address] Venus Pagan MD, [address] [place] [address], [address] [place] [address], [address], 3 07:58:10 spine center referral - Attn: Soraya Dailey - Reason for Referral: Nonoperati ve care of cervical and lumbar spine. 2022 023 [email or web address] [facility], [address] [place], [address], 3 08:12:50 Procedures injection, hip, fluoro guidance (PROC) - right hip OA, corticoste roid inj 2022 023 [place] [facility] ([facility]), [address], [place], [address], 3 14:14:03 Surgeries None recorded. Imaging MRI, lumbar spine, w/o contrast - progressiv e low back with b/l Leg pain and b/l le numbness 2022 023 CHANDA Not available 3 10:37:02 XR, lumbosacra l spine, 2 or 3 view 2022 023 [email or web address] [facility], [address], [address], [place], [address], 3 12:47:27 XR, cervical spine, 2 or 3 view 2022 023 [email or web address] [facility], [address], [place], [address], 3 12:47:27 XR, hip, unilateral , 2 or 3 view 2022 023 [email or web address] [facility], [address], [place], [address], 3 12:47:27 Medication Orders None recorded. Patient TargetsNo targets recorded. Patient Instructions Encounter Date Encounter Id Patient Instructions Last Modified By Organization Details Last Modified Time 01/16/2023 [id number] Imaging: AP and lateral radiographs of the cervical spine were obtained in the [place] office today. These revealed straightening of cervical lordosis with large flowing anterior osteophytes throughout her entire cervical spine. She appears to be autofused from C2-C6. AP and lateral radiographs lumbar spine were obtained in the [place] office today. These reveal changes with narrowing and osteophyte formation. Facet arthropathy. No evidence of fracture or spondylolisthesis. X-rays of the right hip were obtained in the office today for further evaluation of right groin and lateral thigh pain. This revealed degenerative changes of the right hip without fracture or acute abnormality. [email or web address] Not available 01/16/2023 12:12:03 Reason for Referral [...] observ ation record ed. [email or web address] [facility] [address], [place], [address], 03/10/2023 04:40:44 03/09/20 23 03/09/2023 injec tion, hip, fluor o michelle nce (PROC ) No observ ation record ed. [email or web address] [facility] [address], [place], [address], 03/10/2023 04:40:44 07/05/2006/27/2023 MRI, lumba r spine , w/o contr ast No observ ation record ed. [email or web address] [facility] [address] [place] [address], [address], 07/05/2023 10:55:56 Result Notes None recorded. Problems Name Problem SNOMED Code Status Onset Date Resolution Date Notes Provider Name and Address Organization Details Recorded Time Low back pain 665231392 Active [address], [place], [address] , [place] [facility] 3 12:27:53 Pain in cervical spine 260006899 Active [address], [place], [address] , [place] - [facility], [facility] 3 12:27:54 Pain of right hip joint 52363424014 9102 Active [address], [place], [address] , [place] [facility], [facility] 3 12:27:56 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, [place], , [place] [facility], [facility] 3 14:21:14 Arthritis of facet joint of lumbar spine 17879300088 416981 Active 2022 Karri England MD [address],[place] [address], [place], [address] , [place] [facility] 3 16:32:14 Problem Notes None recorded. Procedures Surgical History Date Name Laterality Status Provider Name and Address Organization Details Recorded Time procedure on foot completed [facility]rena [facility] - [facility] 06/19/2023 08:57:47 [facility] [place] [facility] 06/19/2023 08:57:57 [facility] [place] [facility] 06/19/2023 08:58:05 Imaging Results None recorded. Procedure Notes None recorded. Medical Equipment None Reported. Allergies Allergen ID Allergen Name Allergen Category Reaction Reaction Severity Criticality Documentation Date Start Date Code Code System Note Provider Name and Address Organization Details Recorded Time 16791 pravastat in medicatio n Not available Not available Not available 06/10/20252012 77019 RxNorm Other react ion(s ): Myalg ia and Joint Pain Not Available [facility] 5 01:21:09 73247 rosuvasta tin medicatio n Not available Not available Not available 06/10/20252012 21375 2 RxNorm Other react ion(s ): Myalg ia and Joint PainM ultip le trial s. Not Available [facility] 5 01:21:09 Medications Name Sig Start Date [...] Updated DateTime 01/16/2023 160.02 cm 46.1 kg/m2 595106.02 norman George Po [facility] 01/16/2023 11:21:52 Date Recorded Body height Provider Name an d Address Organization Details Last Updated DateTime 02/14/2023 160.02 cm Janett Woodard [facility] 02/14/2023 14:07:11 Date Recorded Body height Body mass index (BMI) Body weight Provider Name and Address Organization Details Last Updated DateTime 05/16/2023 160.02 cm 46.1 kg/m2 886878.02 norman Hanselmargaret Mariana [facility] 05/16/2023 10:58:36 Date Recorded Body height Body mass index (BMI) Body weight Provider Name and Address Organization Details Last Updated DateTime 06/19/2023 160.02 cm 46.1 kg/m2 828058.02 norman Trena Rashid [facility] 06/19/2023 09:06:57 Date Recorded Body height Body mass index (BMI) Body weight Provider Name and Address Organization Details Last Updated DateTime 07/10/2023 160.02 cm 46.1 kg/m2 905184.02 norman George Po [facility] 07/10/2023 16:17:34 Date Recorded Body mass index (BMI) Body weight Body height Provider Name and Address Organization Details Last Updated DateTime 07/26/2023 46.06 kg/m2 882443 g 160 cm Not Available [facility] 06/10/2025 00:53:27 Date Recorded Respiratory rate Heart rate Body temperature Oxygen saturation Systolic And Diastolic Provider Name and Address Organization Details Last Updated DateTime 18 /min 90 /min 98.006 [degF] 97 % 130/62 mm[Hg] Not Available [facility] 00:53:28 Social History Question Answer Notes LastModified by Organizat ion Details LastModified Time Tobacco Smoking Status Former Smoker Trena Rashid null, [place] - [facility] 06/19/2023 08:56:32 When Did You Quit Smoking? 16+yearssinc elastcigaret te [id number] Information not available 06/19/2023 Sex: Unknown Functional Status Question Answer Note LastModified by Organizat ion Details LastModified Time Do you use any illicit or recreational drugs? No [email or web address] Information not available 06/19/2023 Do you or have you ever used any other forms of tobacco or nicotine? No [email or web address] Information not available 06/19/2023 What is your level of alcohol consumption? None [email or web address] Information not available 06/19/2023 Mental Status None recorded. Family History Relationship Description Onset Age of this Age Resolved Age Notes LastModified by Organization Details LastModified Time Mother Arthritis [id number] Not theron ilable 06/19/2023 08:56:57 Mother Family history of malignant neoplasm [email or web address] Not available 08:57:04 Mother Hyperlipidem ia [email or web address] Not available 08:57:34 Sister Arthritis [email or web address] Not theron ilable 06/19/2023 08:56:57 Sister Heart disease [email or web address] Not available 08:57:22 Medical History Condition Response [...] Anemia N Brain Injury N Heart Attack ([place]) N Osteopenia N Diabetes N Bleeding Disorder [...] Code Diagnosis IMO Codes Diagnosis Note [id number] [address] [place] [address] 01/16/2023 10:55:10 01/16/2023 12:44:02 Pain in cervical spine 338709742 M54.2 Low back pain 588905369 M54.50 Pain of ri ght hip joint 6632180459 42824 M25.551 Diffuse id iopathic skeletal hyperostosis of cervical spine 0532783982 89015 M48.12 Lumbar spondylosis 00526 0009 M47.896 34527 MD SHARON Gleason [place] [id number] 02/14/2023 14:04:03 02/14/2023 14:20:48 Osteoarthritis of right hip joint 5569639378 17213 M16.11 [address] [place] [place] [id number] 05/16/2023 10:55:30 05/16/2023 11:38:24 Pain of right hip joint 4999461138 62060 M25.[address] [address] 06/19/2023 08:52:37 06/19/2023 09:16:54 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 2758829779 65611 M48.12 Pain in ce rvical spine 253692019 M54.2 Low back pain 503857920 M54.50 Lumbar spondylosis 06249 0009 M47.896 M79.669 Pain of ri ght hip joint 1700434841 11484 M25.551 64989 MD SHARON Ricci [address] [address] 07/10/2023 15:53:13 07/10/2023 16:37:13 Low back pain 490120888 M54.50 Arthritis of facet joint of lumbar spine 4718963514 6102850 M46.96 Body mass index 40+ - severely obese 584326350 Z68.42 Health Concerns Section Related Observation LastModified by Organization Detai ls LastModified Time None Recorded Concern Status LastModified by Organization Details LastModified Time None Recorded Advance Directives Directive None Recorded Payers Insurance Date Sequence Insurance Name Policy Number Policy Fowler Covered Member ID Fowler Member ID Guarantor Name 07/09/2023 1 [employer] [id number] Fifi Noriega [id number] Fifi Noriega Notes Date Note Type [...] loss. 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 ASHLEY REECE PA-C [address], [place], [address], [place] [facility] 01/16/2023 12:29:11 02/14/2023 text/html HPI:Thank you [...] She has tried dry needling, massage therapy, plant care worker. Spine issues. She was seen by Dr. Bosch's team, and was referred to [facility].Review of systems is negative for other rapidly [...] Carter Hess MD [address], [place], [address], [facility] - [facility] 02/14/2023 14:22:25 05/16/2023 text/html 58-year-old female [...] GAURAV OLIVIER PA-C [address], [place], [address], [place] [facility] 05/16/2023 11:31:23 06/19/2023 text/html Prior Visit [...] loss. Treatments today include dry needling, massage, plant care worker, 2 cortisone injections by her [...] ASHLEY REECE PA-C [address], [place], [address], [place] [facility] 06/19/2023 09:20:46 OBGyn Episode No OBEpisode recorded.
--- OUTSIDE RECORDS SUMMARY | 2025-09-05 15:40 | XMS_ITS | Data Portability ---
Author Organization [facility], [facility] Address [address] [place] [address] Care Team Providers Care Etl Application Developer Name Role Phone TIMO BARRETT Primary Care Provider Assessment No assessment recorded. Plan of Treatment Reminders Order Date Submit Date Provider Last Modified By Organization Details Last Modified Time Details Appointments None recorded. Lab None recorded. Referral None recorded. Procedures None recorded. Surgeries None recorded. Imaging XR, hip + pelvis, unilateral , 2 or 3 view - 211 r hip 2v 2023 024 [email or web address] [facility], [address] [facility] [address], [facility] [address], [place], [address], 4 11:27:58 Medication Orders meloxicam 15 mg tablet 2023 024 [email or web address] [facility]arm[facility] #[id number], [address] [place], [address], 4 11:27:58 Patient TargetsNo targets recorded. Patient InstructionsNo instructions recorded. Reason for Referral None Reported. Results Created Date Observation Date Name Description Value Unit Range Abnormal Flag Note LastModifiedBy Organization Detail LastModifiedTime 04/30/20 24 04/30/2024 XR, hip + pelvi s, unila teral , 2 or 3 view http:/ [email or web address] ?Encry pted=s hAaTro YD8dLq bEUv6g %2BXZw aYqtaq 0bqfl% 2Fg9IQ a4ajBk vP9nXo QUaueC m3YtLR FvZlgJ JJ8mAn HZtai3 8h1793 AC0KoY nqHUqT eUC8mr 84%3D INTERFACE [facility] [address], [place], [address], 04/30/2024 16:07:36 04/30/20 24 04/30/2024 XR, hip + pelvi s, unila teral , 2 or 3 view http:/ [email or web address] ?Encry pted=s hAaTro YD8dLq bEUv6g %2BXZw aYqtaq 0bqfl% 2Fg9IQ a4ajBk vP9nXo QUaueC m3YtLR FvZlgJ JJ8mAn HZtai3 0x4403 AC0KoY nqHUqT eUC8mr 84%3D INTERFACE [facility] [address], [place], [address], 04/30/2024 16:07:38 Result Notes Documentation Provider Name and Address Organization Details Recorded Time Xr, Hip + Pelvis, Unilateral, 2 Or 3 View : [email or web address] Encrypted=biQoMqoBS3cCepS Uv6g%9XRZozPhdnb5bsfc%2Fg 1UJa5alNmtQ0oPgWHuiuMk7Tm KAUwMpqACM8zTwDPynh56s820 0WR7AbAhpGOhZeJA9tj56%3D Not Available [facility] 04/30/2024 16:0 7:36 Xr, Hip + Pelvis, Unilateral, 2 Or 3 View : [email or web address] Encrypted=tzPoOaeTW2cRpuP Uv6g%4FDVkjRuqtp9oxfz%2Fg 8ZNp9zhPqpR9cHyWMvvmRz3Fz WMNyCgnBCZ1pOyYAobv05l815 5SG5OzEpjIEwUsBE0vb99%3D Not Available [facility] 04/30/2024 16:0 7:38 Problems Name Problem SNOMED Code Status Onset Date Resolution Date Notes Provider Name and Address Organization Details Recorded Time Pain of right hip joint 568435643132334 Active 2023 EDEN baldwin [place] - [facility] 4 15:59:38 Low back pain 699508109 Active 2023 EDEN HAO baldwin [place] - [facility] 4 16:30:42 Problem Notes None recorded. Medical Equipment None Reported. Allergies No known drug allergies Medications Name Sig Start Date Stop Date Status Note LastModified by Organization Details LastModified Time prednisone 10 mg tablet PLEASE SEE ATTACHED FOR DETAILED DIRECTION S 04/30 completed Not Available Not Available Not Available trazodone 50 mg tablet TAKE 1-2 TABS ORALLY ONCE A DAY NEEDED 30 DAYS active Not Available Not Available No t Available ondansetron HCl 8 mg tablet TAKER 1 TABLET BY MOUTH 3 TIMES A DAY NEEDED FOR 7 DAYS 04/30 completed Not Available Not Available Not Available meloxicam 15 mg tablet TAKE 1 TABLET BY MOUTH EVERY DAY DIRECTED active Not Available Not Available No t Available sucralfate 1 gram tablet TAKE 1 TABLET BY MOUTH 4 TIMES A DAY 04/30 completed Not Available Not Available Not Available metoclopram yovany 5 mg tablet TAKE 1 TABLET BY MOUTH FOUR TIMES A DAY NEEDED FOR NAUSEA AND VOMITING FOR 7 DAYS active Not Available Not Available No t Available doxycycline monohydrate 100 mg capsule TAKE 1 CAPSULE BY MOUTH EVERY 12 HOURS FOR 10 DAYS 04/30 completed Not Available Not Available Not Available nitrofurant oin macrocrysta l 100 mg capsule TAKE 1 CAPSULE BY MOUTH TWICE A DAY FOR 5 DAYS WITH FOOD 04/30 completed Not Available Not Available Not Available omeprazole 20 mg capsule,del ayed release TAKE 1 CAPSULE BY MOUTH EVERY DAY 30 MINUTES BEFORE MORNING MEAL FOR 30 DAYS active Not Available Not Available No t Available lisinopril 5 mg tablet active Not Available Not Available Not Available mupirocin 2 % topical ointment APPLY 1 APPLICATI ON TOPICALLY TWICE A DAY FOR 5 DAYS 04/30 completed Not Available Not Available Not Available albuterol sulfate HFA 90 mcg/actuati on aerosol inhaler active Not Available Not Available Not Available ketoconazol e 2 % topical cream active Not Available Not Available Not Available ezetimibe 10 mg tablet active Not Available Not Available Not Available bupropion HCl XL 300 mg 24 hr tablet, extended release 04/30 completed Not Available Not Available Not Available bupropion HCl XL 150 mg 24 hr tablet, extended release TAKE 1 TABLET BY MOUTH EVERY DAY IN THE MORNING FOR 30 DAYS 04/30 completed Not Available Not Available Not Available escitalopra m 5 mg tablet TAKE 1 TABLET BY MOUTH EVERY DAY FOR 90 DAYS active Not Available Not Available No t Available Jardiance 10 mg tablet active Not Available Not Available Not Available Repatha SureClick 140 mg/mL subcutaneou s pen injector DIRECTED SUBCUTANE OUS ONCE EVERY 2 WEEKS 90 DAYS active Not Available Not Available No t Available Trulicity 3 mg/0.5 mL subcutaneou s pen injector 04/30 completed Not Available Not Available Not Available Trulicity 4.5 mg/0.5 mL subcutaneou s pen injector active Not Available Not Available Not Available Vitals Date Recorded Body weight Body mass index (BMI) Body height Provider Name and Address Organization Details Last Updated DateTime 04/30/2024 869537.24 g 45.5 kg/m2 160.02 cm EDEN BUI [place] - [facility] 04/30/2024 15:57:14 Social History None recorded. Functional Status None recorded. Mental Status None recorded. Family History Nothing Reported. Medical History No medical history recorded. Gynecological HistoryNo gynecological history recorded. Obstetrics History GPAL:G 0 P 0 0 0 0 Past Encounters Encounter ID Performer Location Encounter Start Date Encounter Closed Date Diagnosis/Indication Diagnosis SNOMED-CT Code Diagnosis ICD10 Code Diagnosis IMO Codes Diagnosis Note [id number] DEANGELO Weiss [address] [place] [address] 04/30/2024 15:45:56 05/25/2024 09:05:06 Pain of right hip joint 8672164671 80362 M25.551 Low back pain 734008298 M54.50 Health Concerns Section Related Observation LastModified by Organization Detai ls LastModified Time None Recorded Concern Status LastModified by Organization Details LastModified Time None Recorded Advance Directives Directive None Recorded Payers Insurance Date Sequence Insurance Name Policy Number Policy Fowler Covered Member ID Fowler Member ID Guarantor Name 05/25/2024 1 LATISHA (PPO) [id number] Fifi Noriega [id number] Fifi Noriega Notes Date Note Type Note Provider Name and Address Organization Details Recorded Time 04/30/2024 text/html ROS as noted in the HPI I am seeing the patient today under the supervision of Dr. vieyra who was available but who did not see the patient. HPI:Patient is a 59-year-old female presents to the office today with complaints of right hip pain. Patient states that she has had this hip pain for greater than 5 years. She denies any specific inciting events or injuries. Pain started with low back pain on the right side which has now started to radiate into her anterior groin. Patient states this has tried a multitude of previous conservative treatment options including physical therapy, chiropractor, dry needling, right hip intraarticular cortisone injection, multiple anti-inflammatory medications in the past, multiple rounds of prednisone Aleve which only provided her with some relief. Patient has pain primarily with prolonged standing and walking. Denies any instability in the hip. Denies any numbness or tingling of the right lower extremity. Her previous intraarticular injection did give her some relief. Past family, medical, social history and review of systems has been reviewed, updated and is located in the patient s chart. Examination:Well appearing 59-year-old female in no acute distress. She is alert and oriented x3. She ambulates using a cane for ambulatory support. Right hip reveals no erythema, warmth, ecchymosis, swelling. Minimal tenderness to palpation over the greater trochanter. Near full range of motion of the hip in all directions with no discomfort. Hip strength 5/5 against resistance in all directions. Negative ABRAHAN test. Negative Stinchfield test. Calf is soft and nontender. 2 views of the right hip obtained and independently reviewed in the office today reveal fairly well preserved joint space with mild arthritic changes noted primarily at the inferior acetabulum. There is spurring noted around the hip joint as well as multiple areas of the pelvis. No evidence of fracture. PatientHad previous lumbar spine MRI which reveals diffuse disc bulge and bilateral facet arthropathy with ligamentum flavum thickening and mild spinal canal stenosis primarily of L2-L3 as well as L4-L5, L3-L4. Impression:Lumbar spine pain, right hip pain Plan:Based on patient's symptomology as well as radiographic findings today in previous MRI of her lumbar spine am concerned that she is having more lumbar spine pain that is radiating into her hip joint rather than actual hip joint symptomology. Her physical exam is essentially unremarkable and she has no pain with active or passive range of motion of the hip. Patient will be referred to [facility] for lumbar spine injection and will give it a couple weeks to see how things progress. If patient doesn't have any alleviation of pain we discussed ordering an MRI of the right hip to rule out intraarticular pathology. Patient agrees with this treatment plan. Follow-up with us on a p.r.n. basis. At this time all patient questions and concerns were answered today. Karri Celestin PA-C [address], [place], [address], [facility] - [facility] 04/30/2024 16:38:03 OBGyn Episode No OBEpisode recorded.
--- OUTSIDE RECORDS SUMMARY | 2025-09-05 15:40 | XMS_ITS | Clinical Summary ---
Author Organization [facility] it Address [address] [place] [address] Care Team Providers Care Bull Driver Name Role Phone Doris Lal BELKIS Primary Care Provider [phone] Surgical History Surgery Date Site/Laterality Comments CHOLECYSTECTOMY PROCEDURE:CHOLECYSTECTOMY HYSTERECTOMY PROCEDURE:HYSTERECTOMY FOOT SURGERY PROCEDURE:FOOT SURGERY COLONOSCOPY PROCEDURE:COLONOSCOPY LUMBAR EPIDURAL INJECTION 08/03/2023 Bilateral PROCEDURE:LUMBAR EPIDURAL INJECTION;COMMENT:Procedure: INJECTION ANESTHETIC AGENT LUMBAR; Surgeon: Venus Pagan MD; [facility]; Service: Rehab Medicine; Laterality: Bilateral; Medical History Medical History Date Comments Hypertension DX:Hypertension Hyperlipidemia DX:Hyperlipidemi a Diabetes mellitus, type II ( CMS/HCC V24, CMS/HCC V28) DX:Diabetes mellitus, type I I ([facility]) Osteoarthritis DX:Osteoarthriti s Asthma DX:Asthma Anxiety DX:Anxiety [...] Recently Relevant to Health Maintenance Care Teams Bull Driver Relationship Specialty Start Date End Date Doris Lal NP [address] [place] [address] PCP - General 07/28/23
--- OUTSIDE RECORDS SUMMARY | 2025-09-05 15:40 | XMS_ITS | Clinical Summary ---
Author Organization [facility] Prior to 02/15/25 Address [address] [place] [address] Care Team Providers Care Manager Recruiting Name Role Phone Doris Lal NP Primary Care Provider [phone] Allergies Active Allergy Reactions Criticality Noted Date [...] age to complete this topic Care Teams Manager Recruiting Relationship Specialty Start Date End Date Doris Lal NP [address] [address] [place] [address] PCP - General Oncology 07/28/23
== END 2025-09-05 14:06 | disposition home or self-care (01) ==
LOC: HO.MAMMO 14:05
PROVIDERS: PCP Physician Assistant; Visit Provider Physician Assistant
DX: Z12.31 Encounter for screening mammogram for malignant neoplasm of breast (principal); N95.1 Menopausal and female climacteric states
CPT/HCPCS: 77063; 77067; 77080

== ENCOUNTER → 2025-09-05 14:30 | Outpatient (BNV) | payer OTHER, SELFPAY | PROVIDERS: PCP Physician Assistant; Visit Provider Radiology Diagnostic Radiology | DX: E28.39 Other primary ovarian failure (principal) | CPT/HCPCS: 77080 ==